=== PATIENT | male | born 1955 | race Caucasian/White ===

== ENCOUNTER 2020-08-21 05:35 | Outpatient (RCR) | payer BC, OTHER ==
[~2020-08-21] VITALS: Ht 177.8 cm; Wt 85.4 kg
[~2020-08-21 05:35] MED LIST: SERT100T8 PO
== END 2020-08-21 10:29 | disposition home or self-care (01) ==
LOC: PREOP 05:35
PROVIDERS: ATTEND Internal Medicine
DX: Z01.812 Encounter for preprocedural laboratory examination (principal); Z20.828 Contact with and (suspected) exposure to other viral communicable diseases
CPT/HCPCS: 87635

== ENCOUNTER 2020-08-24 07:10 | Day surgery (SDC) | payer BC, OTHER ==
--- NOTE | 2020-08-10 20:22 | HISTORY AND PHYSICAL ---
DATE OF SERVICE: COLONOSCOPY HISTORY AND PHYSICAL HISTORY OF PRESENT ILLNESS: The patient is a 65-year-old white male, who presented for yearly wellness evaluation. It has actually been about a year and a half since he was last seen in the office. He has a history of acute intermittent gout. He also came in reporting a 4-day history of right elbow swelling with mild discomfort. It happened after he had been moving a lot of boxes. He denied knowingly pitting the area, but had been quite physically active. He is averaging about two gout attacks, much improved since he cut out alcohol, now 5 years ago. They involved predominantly podagra and are controlled by just 3 days' worth of prednisone and he was requesting another refill. 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 The policy has been as long as there have been no recent COVID cases. His weight was down significantly 19 pounds from a year and a half ago and he reports this was because he has cut down to just one soda per day from three and was also eating several candy bars a day, which he no longer does. SOCIAL HISTORY: He gave up alcohol five years ago. No history of known problem drinking, no past smoking history, has been walking his dog twice a day, roughly about a mile. FAMILY HISTORY: No changes in family history. Father at the age of 80 of pancreatic cancer. Mother at the age of 87 with a history of dementia. Has one sister with dilated cardiomyopathy, living in her 60s and four other siblings that are alive and well with no reported health problems. PHYSICAL EXAMINATION: GENERAL: Reveals a white male who appeared to be in no acute distress. VITAL SIGNS: Weight down 19 pounds, 188.6, blood pressure 132/88. CHEST: Clear. CARDIOVASCULAR: Reveals a regular rate and rhythm without murmur, S3 or S4. There are occasional prematurity noted, asymptomatic. ABDOMEN: Soft, supple without mass, organomegaly or tenderness. EXTREMITIES: Reveal no cyanosis, clubbing or edema, only abnormality being swelling over the right olecranon bursa, mild erythema. No induration. Minimal discomfort to palpation. SKIN: Evaluation revealed no suspicious nevi. Ear canals clear with normal TMs. ASSESSMENT AND PLAN: 1. Except for right olecranon bursitis, otherwise unremarkable wellness evaluation. The patient is being set up for screening colonoscopy. He had one other colonoscopy 12 years ago that did not reveal any significant abnormalities with removal of one hyperplastic polyp from the mid sigmoid colon. 2. Acute intermittent gout. We did send off a uric acid level, screening PSA, chemistry and lipid panel. 3. Olecranon bursitis, gout is in the differential. A 7 mL of slightly turbid yellow fluid were withdrawn as the patient had no signs or symptoms to suggest infection. A 20 mg of Depo-Medrol were then instilled. Expectations were discussed. If there is increase in redness or swelling, he is to return for early evaluation. We will see him back for yearly wellness examination, make sure prednisone tapers as needed for gout were sent out electronically. Job ID: [id number] DocumentID: [id number] Dictated Date: 07/25/2020 16:23:18 Animal Trainer Supervisor Date: 07/25/2020 16:52:48 Dictated By: ELENA RUIZ MD
[2020-08-24] VITALS (12 sets, daily range): BP systolic 124–156; BP diastolic 66–86
[~2020-08-24] VITALS: Ht 177.8 cm; Wt 85.4 kg
[2020-08-24] MEDS ORDERED: D5 LR IV SOLUTION 1,000 ML IV STA (07:21)
[2020-08-24] MEDS ORDERED: D5 LR IV SOLUTION 1,000 ML IV ONE (07:24)
[2020-08-24] MEDS ORDERED: LIDOCAINE JELLY 2% 6 ML SYRINGE MM PRN (07:30)
[2020-08-24] MEDS ORDERED: fentaNYL INJECTION 100 MCG/2 ML AMP IVP ONE (07:30)
[2020-08-24] MEDS ORDERED: MIDAZOLAM 5 MG/5 ML (VERSED) VIAL IV ONE (07:30)
[2020-08-24] MEDS ORDERED: LIDOCAINE JELLY 2% 6 ML SYRINGE ONE (07:58)
[2020-08-24] MEDS ORDERED: MIDAZOLAM 5 MG/5 ML (VERSED) VIAL ONE (07:59)
[2020-08-24] MEDS ORDERED: fentaNYL INJECTION 100 MCG/2 ML AMP ONE ×2 (07:59)
--- NOTE | 2020-08-24 08:04 | Pre-Op Note & Conscious Sedat ---
Pre-Operative Progress Note H&P Reviewed The H&P was reviewed, patient examined and no changes noted. Date H&P Reviewed: Aug 24, 2020 Time H&P Reviewed: 07:45 Conscious Sedation Pre-Proced ASA Score 2 For ASA 3 and 4: Consider anesthesia and medical clearance. Also, for patients with a history of failed moderate sedation consider anesthesia. Airway Lungs Heart ASA score ASA 1: a normal healthy patient ASA 2: a patient with a mild systemic disease (mid diabetes, controlled hypertension, obesity ASA 3: a patient with a severe systemic disease that limits activity (angina, COPD, prior Myocardial infarction) ASA 4: a patient with an incapacitating disease that is a constant threat to life (CHF, renal failure) ASA 5: a moribund patient not expected to survive 24 hrs. (ruptured aneurysm) ASA 6: a declared brain- patient whose organs are being harvested. For emergent operations, add the letter E after the classification Mallampati Classification Grade 2 Sedation Plan Analgesia, Amnesia, Plan communicated to team members, Discussed options with patient/fam, Discussed risks with patient/fam The patient is an appropriate candidate to undergo the planned procedure, sedation, and anesthesia. The patient immediately re-assessed prior to indication. ELENA RUIZ MD Aug 24, 2020 08:04
--- NOTE | 2020-08-24 19:45 | OPERATIVE REPORT ---
DATE OF SERVICE: COLONOSCOPY SUMMARY INDICATION FOR COLONOSCOPY: Screening colon. DESCRIPTION OF PROCEDURE: The patient was placed in the left lateral decubitus position. Prior to undergoing colonoscopy, digital rectal evaluation was performed. Anal sphincter tone was normal and the perianal reflexes intact. Prostate was normal in size, anodular, nontender to digital inspection. No abnormalities were noted on digital inspection of anal canal or distal rectal vault. The colonoscope was inserted into the rectum and under direct visualization advanced to the cecum. The cecum was identified by identification of the ileocecal valve and cecal strap. Photographic documentation was obtained. Careful inspection was made as the colonoscope withdrawn. The patient tolerated the procedure well. FINDINGS: There was no evidence for internal or external hemorrhoids. A diminutive hyperplastic appearing polyp was removed from the distal rectum with no blood loss. It was biopsied and ablated. A mild to moderate diverticular disease confined to the sigmoid colon was present without evidence for diverticulitis. The descending colon, transverse colon and ascending colon were unremarkable. There is a questionable polyp at the level of the ileocecal valve versus protruding terminal ileal tissue. It was biopsied and submitted for histopathology. The cecum was otherwise unremarkable. ASSESSMENT: 1, possibly 2 polyps were noted. If the terminal ileum biopsy reveals normal normal ileal tissue and not a polyp would just advocate consideration for repeat screening colonoscopy in 10 years. The patient did have [id number] diverticular disease confined to the sigmoid colon without evidence for diverticulitis. Job ID: [id number] DocumentID: [id number] Dictated Date: 08/24/2020 11:58:18 Animation Producer Date: 08/24/2020 19:44:28 Dictated By: ELENA RUIZ MD [facility]
== END 2020-08-24 09:25 | disposition home or self-care (01) ==
LOC: ENDO 07:10
PROVIDERS: ATTEND Internal Medicine
DX: Z12.11 Encounter for screening for malignant neoplasm of colon (principal); D12.0 Benign neoplasm of cecum; K57.30 Diverticulosis of large intestine without perforation or abscess without bleeding; Z80.0 Family history of malignant neoplasm of digestive organs

== ENCOUNTER → 2021-12-13 | Outpatient (CLI) | payer BC ==
[~2021-12-13] MED LIST changes: +SERT-414 PO; -SERT100T8 PO
== END ==
LOC: CARD 10:45
PROVIDERS: ATTEND Nurse Practitioner Family
DX: I49.9 Cardiac arrhythmia, unspecified (principal)
CPT/HCPCS: 93005

== ENCOUNTER → 2022-10-09 | Outpatient (CLI) | payer BC | LOC: CARD 10:00 | PROVIDERS: ATTEND Nurse Practitioner Family | DX: R00.2 Palpitations (principal) | CPT/HCPCS: 93225; 93226 ==